=== PATIENT | male | born 1960 | race Caucasian/White ===

== ENCOUNTER → 2016-10-19 | Outpatient (CLI) | payer BC ==
[~2016-10-19] MED LIST: FEXO1TAB46 PO; KETO10TA PO; MULT-506 PO; OXYC-57 PO; VITA400C3 PO
[2016-10-19 12:18] LABS: BASO % 0.6 %; BASO ABS # 0.03 K/uL (0-0.2); COMPLETE YES; EOS % 2.4 %; HEMATOCRIT 44.8 % (42-52); IG% 0.2 %; LYMPH % 25.8 %; LYMPH ABS # 1.28 K/uL (1.2-3.4); MEAN CELL VOLUME 93.1 fL (80-100); MEAN CORPUSCULAR HEMOGLOBIN 32.6 pg (25-34); MEAN PLATELET VOLUME 9.8 fL (7.4-10.4); MONO % 9.5 %; NEUT % 61.5 %; PLATELET COUNT 237 K/uL (130-400); RED BLOOD COUNT 4.81 M/uL (4.7-6.1); WHITE BLOOD COUNT 4.96 K/uL (4.8-10.8)
[2016-10-19 12:54] LABS: BLOOD UREA NITROGEN 16 mg/dl (7-18); BUN/CREATININE RATIO 19.5 (10-20); CALCIUM 8.7 mg/dl (8.5-10.1); CARBON DIOXIDE 29 mmol/L (21-32); CHLORIDE 106 mmol/L (98-107); CREATININE 0.82 mg/dl (0.60-1.40); GLUCOSE 99 mg/dl (70-99); POTASSIUM 3.9 mmol/L (3.5-5.1); SODIUM 141 mmol/L (136-145)
== END | disposition home or self-care (01) ==
LOC: C.CPL 11:07
PROVIDERS: ATTEND Orthopaedic Surgery
DX: M75.01 Adhesive capsulitis of right shoulder (principal); R00.1 Bradycardia, unspecified

== ENCOUNTER → 2016-10-28 | Day surgery (SDC) | payer BC ==
[2016-10-21 08:32] VITALS: Ht 165.1 cm; Wt 70.5 kg
[~2016-10-28] VITALS: Ht 165.1 cm; Wt 70.5 kg
[~2016-10-28] MED LIST changes: +ATROPINE SULFATE 0.1 MG/ML 5ML SYR IV PRN; +BUPIVACAINE/EPINEPHRINE 0.25% 1:200,000 30 ML VIAL ONE; +CEFAZOLIN 2000 MG/60 ML D5W IV SCH; +DEXAMETHASONE SOD INJ 4 MG/ML VIAL ONE; +EpHEDrine SULFATE INJ 50 MG/ML AMP IV PRN; +EpHEDrine SULFATE INJ 50 MG/ML AMP ONE; +EpINEphrine INJ 1MG/ML AMP 1 MG/ML AMP ONE; +FENTANYL CITRATE INJ 50 MCG/1 ML 2 ML VIAL IV PRN; +FENTANYL CITRATE INJ 50 MCG/1 ML 2 ML VIAL ONE; +LIDOCAINE HCL 2% 2 ML VIAL (20MG/ML) ONE; +METHYLPREDNISOLONE ACETATE 80 MG/ML VIAL ONE; +MIDAZOLAM HCL 1 MG/ML 2ML VIAL ONE; +ONDANSETRON INJ 2 MG/ML 2 ML VIAL IV PRN; +ONDANSETRON INJ 2 MG/ML 2 ML VIAL ONE; +OXYCODONE/ACETAMINOPHEN 5-325 TAB PO PRN; +PROPOFOL IV EMULSION 10 MG/ML 20 ML VIAL IV ONE; +ROPIVACAINE 0.5% 5 MG/ML 30 ML VIAL ONE; +SODIUM CHLORIDE 0.9% 1000ML 1,000 ML IV SCH
--- NOTE | 2016-10-28 08:02 | History & Physical Bridge - [place] ---
H&P Re-Evaluation Bridge Note: I have examined the patient, reviewed the History & Physical and in the interval since the performance of the History & Physical I have noted the following changes of clinical significance: No changes noted
[2016-10-28] MEDS: LACTATED RINGER'S 1000ML 1,000 ML IV SCH ×2 (11:04→13:46)
--- NOTE | 2016-10-28 13:26 | Discharge Instructions-SurgCtr ---
Discharge Instructions Date of Service Oct 28, 2016. Visit Reason for Visit: Adhesive Capsulitis Of Shoulder Discharge Discharge Diagnosis / Problem: SAME ABOVE Discharge Goals Goal(s): Decrease discomfort, Improve function Activity Recommendations Activity Limitations: as noted below Lifting Limitations: gradually increase as tolerated Exercise/Sports Limitations: gradually increase as tolerated Shower/Bathe: tomorrow Anesthesia . Post Anesthesia Instructions: If you have had General Anesthesia or IV Sedation: * Do not drive today. * Resume driving when surgeon permits. * Do not make important decisions or sign legal documents today. * Call surgeon for: 1. Temperature elevations greater than 101 degrees F. 2. Uncontrollable pain. 3. Excessive bleeding. 4. Persistent nausea and vomiting. 5. Medication intolerance (nausea, vomiting or rash). * For nausea and vomiting use only clear liquids such as: tea, soda, bouillon until nausea subsides, then gradually increase diet as tolerated. * If you have any concerns or questions, call your surgeon's office. If physician is unavailable and it is an emergency, call 911 or go to the nearest emergency room. . Instructions / Follow-Up Instructions / Follow-Up MEDICATIONS: * Resume previous medications unless instructed otherwise by your surgeon. * Always take pain medication on a full stomach or with food to avoid upset stomach. * Do not drink alcohol or drive while taking narcotics. * Ibuprofen or Tylenol may be taken if narcotic not needed. SPECIAL CARE INSTRUCTIONS: __ None _X_ Keep extremity elevated and iced x 48 hours; apply ice 20-30 minutes 8-10 times/day. May remove at night. _X_ Sling (WEAR NEEDED FOR COMFORT) __24 hrs/day __ Remove at night __ Shoulder Immobilizer __ 24 hrs/day __ Remove at night _X_ Dressing __ Maintain until seen in office, may shower with plastic over site _X_ Remove dressings in 24-48 hours and then may shower _X_ Cover incisions with band-aids after showering __ Do not remove steri-strips Call physician if chills or temperature rises above 102 degrees or pain unrelieved by prescribed pain medications at . . Diet Recommendations Home Diet: no limitations Fluid Restriction: None Procedures Procedures Performed: Right Shoulder Arthroscopic Capsular Release Pending Studies Studies pending at discharge: no Work Instructions Return To Work: 3 days (OR WHEN PAIN IS TOLERATED ) Lifting Limitations: none Medical Emergencies . Who to Call and When: Medical Emergencies: If at any time you feel your situation is an emergency, please call 911 immediately. . Non-Emergent Contact Non-Emergency issues call your: Primary Care Provider Call Non-Emergent contact if: you have a fever, temperature is above 101.5 . . "Provider Documentation" section prepared by Bob Donald. .
[2016-10-28 14:24] VITALS: TEMP 36.8
--- NOTE | 2016-10-28 14:31 | Anesthesia Progress Nt - [facility] ---
Anesthesia Post Op Note Date & Time Oct 28, 2016 at 14:31 Vital Signs Pain Intensity: 0 Vital Signs Past 12 Hours Date Time Temp Pulse Resp B/P (MAP) Pulse Ox O2 Delivery O2 Flow Rate FiO2 10/28/16 14:24 36.8 74 16 130/85 (100) 100 Room Air 10/28/16 14:02 74 20 99 10/28/16 14:02 36.4 73 20 10/28/16 14:01 127/84 10/28/16 13:57 68 19 10/28/16 13:57 67 19 97 10/28/16 13:56 122/84 10/28/16 13:53 131/75 10/28/16 13:52 72 16 10/28/16 13:52 75 16 10/28/16 13:47 70 19 10/28/16 13:47 73 19 100 10/28/16 13:46 136/83 10/28/16 13:42 59 19 100 10/28/16 13:42 59 19 10/28/16 13:41 123/80 10/28/16 13:37 58 17 10/28/16 13:37 58 17 100 10/28/16 13:36 117/80 10/28/16 13:34 129/84 10/28/16 13:33 36.1 72 20 129/84 100 Mask 6 10/28/16 12:32 15 10/28/16 12:31 130/80 10/28/16 12:28 59 25 100 10/28/16 12:28 59 10/28/16 12:27 116/73 10/28/16 12:25 62 0 10/28/16 12:20 59 0 10/28/16 12:15 61 0 10/28/16 12:10 56 0 10/28/16 12:05 58 0 10/28/16 12:00 56 0 10/28/16 11:55 54 0 10/28/16 10:39 36.6 61 16 104/80 (88) 98 Room Air Notes Mental Status: alert / awake / arousable, participated in evaluation Pt Amnestic to Procedure: Yes Nausea / Vomiting: adequately controlled Pain: adequately controlled Airway Patency, RR, SpO2: stable & adequate BP & HR: stable & adequate Hydration State: stable & adequate Anesthetic Complications: no major complications apparent
--- NOTE | 2016-10-28 14:33 | OPERATIVE REPORT ---
DATE OF OPERATION: 10/28/2016 PREOPERATIVE DIAGNOSIS: Chronic adhesive capsulitis of the right shoulder. POSTOPERATIVE DIAGNOSIS: Same. PROCEDURES: Right shoulder diagnostic arthroscopy with extensive debridement, lysis of adhesions and manipulation under anesthesia. SURGEON: Dr. Mendoza Miguel. RETAIL MAINTENANCE TECHNICIAN: Nhan Donald PA-C, whose assistance was necessary for positioning the arm and helping with instrumentation. ANESTHESIA: General with a right interscalene nerve block. COMPLICATIONS: None. CONDITION: Stable to PACU. INDICATIONS: Jacobo is a 56-year-old male who has been complaining of a 1-year history of pain and tightness of his right shoulder. MRI and clinical examination were diagnostic for adhesive capsulitis. After failing conservative treatment, he elected to undergo arthroscopy. OPERATION AND FINDINGS: On 10/28/2016 he arrived at [facility] for the above procedure. He was seen in the preoperative holding area and the operative extremity was identified and signed. He was given a preoperative antibiotic and a right interscalene nerve block. He was taken back to the operating room, laid on the table in supine position and put under general anesthesia. He was then put into the beachchair position. The right shoulder was prepped and draped in sterile fashion. Time-out was done and the patient and operative extremity was properly identified. On preoperative physical examination, he had about 60 degrees of abduction, 20 degrees of external rotation, 0 degrees of internal rotation. I tried to do a gentle manipulation to help facilitate insertion of the scope; however, he was so tight I could not do a manipulation. The scope was then put into the posterior portal. Diagnostic arthroscopy showed no cartilage damage to the humeral head or the glenoid. The biceps tendon was intact. There was significant redness and scarring of the rotator interval, the superior, middle and inferior glenohumeral ligaments. An anterior portal was made. A shaver and ablator were used to start lysis of adhesions of the rotator interval. Significant time was spent removing adhesions from the biceps tendon all the way back to the undersurface of the coracoid. The ablator was used to continue lysis of adhesions of the middle and inferior glenohumeral ligaments. Release was taken all the way down to the 6 o'clock position. A shaver was then used to do an extensive debridement and remove all the remnant soft tissues. I debrided the ligaments back to stable margins. Once I was happy with my overall release a gentle manipulation was done under anesthesia. I was able to get full range of motion of his shoulder. The scope was placed back into the glenohumeral joint. Hemostasis was controlled. The biceps tendon was intact. The rotator cuff was intact throughout. A needle was placed for an injection. Arthroscopic instruments were removed from the shoulder. Portal sites were closed with 3-0 nylon. The shoulder was then injected with 80 mg of Depo-Medrol and 5 mL of Marcaine. He was placed in a soft dressing and regular arm sling. He was then extubated, transferred to a [facility] and taken to the postanesthesia care unit in stable condition. He tolerated the procedure well. I attest to the content of the Intraoperative Record and any orders documented therein. Any exception s are noted below.
[2016-10-28 14:51] VITALS: BP 144/89; PULSE 84; O2SAT 99
--- NOTE | 2016-10-28 15:42 | [facility] Post Operative Brief Note ---
Immediate Operative Summary Operative Date Oct 28, 2016. Pre-Operative Diagnosis Adhesive Capulitis, Right Shoulder Post-Operative Diagnosis same as preop Procedure(s) Performed Right Shoulder Arthroscopic Capsular Release Surgeon Dr. Miguel [employer] Associate Surgeon(s) Estelita Donald PA-C Estimated Blood Loss 5ML Findings as above Specimens none per surgeon Complication(s) None Disposition Recovery Room / PACU
== END | disposition home or self-care (01) ==
LOC: X.SURG 10:24
PROVIDERS: ATTEND Orthopaedic Surgery
DX: M75.01 Adhesive capsulitis of right shoulder (principal)

== ENCOUNTER → 2017-09-20 | Outpatient (CLI) | payer OTHER ==
[~2017-09-20] MED LIST changes: -ATROPINE SULFATE 0.1 MG/ML 5ML SYR IV PRN; -BUPIVACAINE/EPINEPHRINE 0.25% 1:200,000 30 ML VIAL ONE; -CEFAZOLIN 2000 MG/60 ML D5W IV SCH; -DEXAMETHASONE SOD INJ 4 MG/ML VIAL ONE; -EpHEDrine SULFATE INJ 50 MG/ML AMP IV PRN; -EpHEDrine SULFATE INJ 50 MG/ML AMP ONE; -EpINEphrine INJ 1MG/ML AMP 1 MG/ML AMP ONE; -FENTANYL CITRATE INJ 50 MCG/1 ML 2 ML VIAL IV PRN; -FENTANYL CITRATE INJ 50 MCG/1 ML 2 ML VIAL ONE; -KETO10TA PO; -LIDOCAINE HCL 2% 2 ML VIAL (20MG/ML) ONE; -METHYLPREDNISOLONE ACETATE 80 MG/ML VIAL ONE; -MIDAZOLAM HCL 1 MG/ML 2ML VIAL ONE; -ONDANSETRON INJ 2 MG/ML 2 ML VIAL IV PRN; -ONDANSETRON INJ 2 MG/ML 2 ML VIAL ONE; +OPTIRAY 320 IV PRN; -OXYC-57 PO; -OXYCODONE/ACETAMINOPHEN 5-325 TAB PO PRN; -PROPOFOL IV EMULSION 10 MG/ML 20 ML VIAL IV ONE; -ROPIVACAINE 0.5% 5 MG/ML 30 ML VIAL ONE; -SODIUM CHLORIDE 0.9% 1000ML 1,000 ML IV SCH
--- NOTE | 2017-09-20 16:11 | DIAGNOSTIC IMAGING REPORT ---
CT NECK WITH INTRAVENOUS CONTRAST. HISTORY: EDEMA OF LARYNX , NODULES OF VOCAL CORD TECHNIQUE: Multiaxial CT images of the neck performed following use of intravenous contrast. COMPARISON STUDY: None. FINDINGS: The visualized brain parenchyma and orbits are unremarkable. The pterygopalatine fossa and parapharyngeal fat spaces are well-maintained. The epiglottis and prevertebral soft tissues are normal in thickness. No evidence for laryngeal edema. Question of a 2 mm nodule versus a small amount of mucoid material along the right vocal cord. This is best seen on image 233. Punctate calcification within the right upper lobe. The left lung apex is clear. The trachea is patent. The thyroid gland enhances normally. The major salivary glands are symmetric. No cervical lymphadenopathy. The major cervical vessels are widely patent. Subcentimeter retention cyst within the left maxillary sinus. The mastoid air cells are clear. IMPRESSION: 1. Possible 2 mm nodule versus a small amount of mucoid material along the right vocal cord. 2. Otherwise, no significant abnormality within the neck. Electronically signed by: Yogi Buitrago M.D. 09/20/2017 4:10 PM Dictated Date/Time: 09/20/2017 3:52 PM
== END | disposition home or self-care (01) ==
LOC: C.CTS 15:18
PROVIDERS: ATTEND Otolaryngology
DX: J38.4 Edema of larynx (principal)